=== PATIENT | female | born 1985 | race Caucasian/White ===

== ENCOUNTER 2025-04-04 14:58 | Emergency (ER) | payer OTHER ==
[2025-04-04] MEDS: Lidocaine 1% with EPINEPHrine 1:100,000 20 ML MDV INFILT PRN (15:15)
[2025-04-04 16:18] VITALS: BP 141/80; PULSE 77
== END 2025-04-04 15:36 | disposition home or self-care (01) ==
LOC: VM.ED 14:58
DX: S61.512A Laceration without foreign body of left wrist, initial encounter (principal); W26.8XXA Contact with other sharp object(s), not elsewhere classified, initial encounter
CPT/HCPCS: 12002; 99282; 99283; J2004